=== PATIENT | male | born 1950 | race Caucasian/White ===

== ENCOUNTER 2018-01-13 22:12 | Emergency (ER) | payer OTHER, MEDICARE ==
[2018-01-13 22:53] LABS: CHLORIDE,CL 102 mmol/L (98-107); SODIUM,NA 135 mmol/L (136-145)
[2018-01-13] MEDS ORDERED: Sodium Chloride 0.9% 10 ML Syringe FLUSH PRN (23:01)
[2018-01-13] MEDS ORDERED: Sodium Chloride 0.9% 1,000 ML IV ONE (23:01)
--- NOTE | 2018-01-14 00:08 | EDM.PDOC ---
ED HPI GENERAL MEDICAL PROBLEM - General Chief Complaint: General Stated Complaint: Abd pain Time Seen by Provider: 01/13/18 23:00 Source of Information: Reports: Patient History Limitations: Reports: No Limitations - History of Present Illness INITIAL COMMENTS - FREE TEXT/NARRATIVE: Patient comes to ER with history of bright red blood per rectum starting later this afternoon around 4:30 to 5pm. Initially had bright red blood with stool. More recently had loose liquid BM that appeared to consist entirely of blood. Has noticed intermittent abdominal cramping today also. No nausea/emesis. Abdominal cramping gets worse with activity. No obvious change with eating/ drinking. Has had plenty of PO water today per patient. No fevers, but currently feels a bit "warm". History of GI bleed over 10 years ago per patient recall. Has been on Omeprazole for years. Patient says it was upper GI bleed. Also suffers from obesity, DM, and HTN. 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 Pending custodial this summer. Lives alone. ROS otherwise negative. Abdominal Pain Score (Numeric/FACES): 4 - Related Data Allergies Allergy/AdvReac Type Severity Reaction Status Date / Time No Known Allergies Allergy Verified 01/13/18 22:15 Home Meds: Home Meds Fish Oil/DHA/EPA [Fish Oil 1,200 MG] 1 cap PO DAILY 01/13/18 [History] Hydrochlorothiazide [Hydrochlorothiazide] 25 mg PO DAILY 01/13/18 [History] Ibuprofen [Advil] 400 mg PO ATDISCHARGE PRN 01/13/18 [History] Losartan [Cozaar] 50 mg PO DAILY 01/13/18 [History] Multivitamin [Multi-Vitamin Daily] 1 tab PO DAILY 01/13/18 [History] Omeprazole 20 mg PO BEDTIME 01/13/18 [History] sitaGLIPtin Phos/Metformin HCl [Janumet 50-1,000 MG] 1 each PO DAILY 01/13/18 [ History] sitaGLIPtin Phos/Metformin HCl [Janumet 50-1,000 MG] 1 tab PO BEDTIME 01/13/18 [ History] Past Medical History HEENT History: Reports: Allergic Rhinitis, Cataract Cardiovascular History: Reports: Heart Murmur, Hypertension Musculoskeletal History: Reports: Arthritis Endocrine/Metabolic History: Reports: Obesity/BMI 30+ - Past Surgical History HEENT Surgical History: Reports: LASIK, Oral Surgery GI Surgical History: Reports: Other (See Below) Other GI Surgeries/Procedures: GI Bleed about 10 years ago. Social & Family History - Tobacco Use Smoking Status *Q: Never Smoker Second Hand Smoke Exposure: No - Caffeine Use Caffeine Use: Reports: Coffee - Recreational Drug Use Recreational Drug Use: No ED ROS GENERAL - Review of Systems Review Of Systems: See Below Constitutional: Reports: No Symptoms. Denies: Fever, Chills, Malaise, Weakness , Fatigue, Night Sweats, Diaphoresis, Decreased Appetite, Weight Loss, Weight Gain HEENT: Reports: No Symptoms Respiratory: Reports: No Symptoms. Denies: Shortness of Breath Cardiovascular: Reports: No Symptoms. Denies: Chest Pain, Dyspnea on Exertion, Edema, Lightheadedness, Palpitations, Syncope Endocrine: Reports: Other (poorly controlled blood sugars by history. No acute changes. ) GI/Abdominal: Reports: Abdominal Pain, Bloody Stool, Constipation (yesterday), Diarrhea (today). Denies: Black Stool, Difficulty Swallowing, Distension, Flatus, Hematemesis, Mucous in Stool, Nausea, Vomiting : Reports: No Symptoms Musculoskeletal: Reports: No Symptoms Skin: Reports: No Symptoms Neurological: Reports: No Symptoms Psychiatric: Reports: No Symptoms Hematologic/Lymphatic: Reports: No Symptoms ED EXAM, GENERAL - Physical Exam Exam: See Below Exam Limited By: No Limitations General Appearance: Alert, WD/WN, No Apparent Distress, Obese Eye Exam: Bilateral Eye: EOMI, PERRL Ears: Normal External Exam Nose: No: Nasal Deformity, Nasal Swelling, Nasal Drainage Throat/Mouth: Normal Inspection, Normal Lips, Normal Voice, No Airway Compromise Head: Atraumatic, Normocephalic Neck: Normal Inspection, Supple, Non-Tender, Full Range of Motion Respiratory/Chest: No Respiratory Distress, Lungs Clear, Normal Breath Sounds, No Accessory Muscle Use, Chest Non-Tender Cardiovascular: No Murmur (Patient has history of heart murmur, not noted during this exam), Tachycardia Peripheral Pulses: 1+: Radial (L), Radial (R), Dorsalis Pedis (L), Dorsalis Pedis (R) GI/Abdominal: Soft, No Distention, No Abnormal Bruit, Tender (mild diffuse tenderness across abdomen), Abnormal Bowel Sounds (hyperactive). No: Guarding, Rigid, Rebound (Male) Exam: Deferred Rectal (Males) Exam: Normal Rectal Tone, Bloody Stool, Heme + Stool, Other ( Prostate feels enlarged). No: Hemorrhoids, Tenderness Back Exam: No: CVA Tenderness (L), CVA Tenderness (R) Extremities: Normal Range of Motion, Non-Tender, No Pedal Edema, Other (cap refill 3 seconds) Neurological: Alert, Oriented, Normal Cognition, Normal Gait, No Motor/Sensory Deficits Psychiatric: Normal Affect, Normal Mood Skin Exam: Warm, Dry, Intact, Normal Color, No Rash Course - Vital Signs Last Recorded V/S: Last Vital Signs Temp 37.1 C 01/14/18 00:35 Pulse 78 01/14/18 00:35 Resp 18 01/14/18 00:35 BP 132/78 01/14/18 00:35 Pulse Ox 98 01/14/18 00:35 - Orders/Labs/Meds Labs: Laboratory Tests 01/13/18 01/13/18 Range/Units 22:30 22:30 WBC 13.6 H (4.0-10.2) K/uL RBC 4.11 L (4.33-5.41) M/uL Hgb 12.2 L (13.1-16.8) g/dL Hct 36.8 L (39.0-49.0) % MCV 89.5 (84.0-98.0) fL MCH 29.7 (28.2-33.3) pg MCHC 33.2 (31.7-36.0) g/dL RDW 12.2 (11.2-14.1) % Plt Count 409 H (150-350) K/uL Neut % (Auto) 56.9 (45.0-80.0) % Lymph % (Auto) 26.1 (10.0-50.0) % [place] % (Auto) 12.4 (2.0-14.0) % Eos % (Auto) 4.0 (0.0-5.0) % Baso % (Auto) 0.6 (0.0-2.0) % Neut # (Auto) 7.74 H (1.40-7.00) K/uL Lymph # (Auto) 3.54 H (0.50-3.50) K/uL [place] # (Auto) 1.68 H (0.00-1.00) K/uL Eos # (Auto) 0.54 H (0.00-0.50) K/uL Baso # (Auto) 0.08 (0.00-0.20) K/uL Sodium 135 L (136-145) mmol/L Potassium 4.0 (3.5-5.1) mmol/L Chloride 102 (98-107) mmol/L Carbon Dioxide 25.2 (21.0-32.0) mmol/L BUN 21 H (7-18) mg/dL Creatinine 0.82 (0.51-1.17) mg/dL Est Cr Clr Drug Dosing 89.81 mL/min Estimated GFR (MDRD) > 60 mL/min Glucose 184 H (74-106) mg/dL Calcium 8.4 L (8.5-10.1) mg/dL Total Bilirubin 0.3 (0.2-1.0) mg/dL AST 25 (15-37) U/L ALT 49 (12-78) U/L Alkaline Phosphatase 45 L (46-116) IU/L Total Protein 7.4 (6.4-8.2) g/dL Albumin 3.4 (3.4-5.0) g/dL Meds: Medications Discontinued Medications Generic Name Dose Route Start Last Admin Trade Name Freq PRN Reason Stop Dose Admin Sodium Chloride 1,000 mls @ 999 mls/hr 01/13/18 23:01 01/13/18 23:21 Normal Saline IV 01/14/18 00:01 999 mls/hr .BOLUS ONE Administration Sodium Chloride 1,000 mls @ 125 mls/hr 01/14/18 00:45 01/14/18 01:12 Normal Saline IV 125 mls/hr ASDIRECTED BRAYAN Administration Iopamidol 100 ml 01/14/18 01:00 01/14/18 01:13 Isovue-300 (61%) IVPUSH 01/14/18 01:01 100 ml ONETIME ONE Administration Sodium Chloride 10 ml 01/13/18 23:01 01/13/18 23:26 Saline Flush FLUSH 10 ml ASDIRECTED PRN Administration Keep Vein Open - Radiology Interpretation Free Text/Narrative:: Plain film showed a few air/fluid levels. Increased stool on right. No air under diaphragm. - Re-Assessments/Exams Free Text/Narrative Re-Assessment/Exam: 01/14/18 00:16 Mild elevation of WBC, Hgb decreased to 12.2 Platelets 409 Chem showed elevated blood sugar. No UA available as of yet. Patient does admit to straining while trying to have bowel movement yesterday. No external hemorrhoids noted. Cannot rule out internal hemorrhoids and bleed caused by straining. However given patient's new crampy abdominal pain as well as hyperactive bowel sounds/frankly bloody stool a GI bleed from above is still possible. Patient had mild tachycardia as well as elevated platelets. IV fluid bolus given. Protonix IV ordered. Call placed to [facility] and patient discussed with . Arrangements were made to transfer patient there for further workup as they have both GI and Surgery available. requested that we perform an abdominal/pelvic CT prior to transfer. Patient does not need to wait until Radiology reads films prior to transfer to [facility]. Departure - Departure Time of Disposition: 01:00 Disposition: DC/Tfer to Acute Hospital 02 Condition: Fair Clinical Impression: Bright red blood per rectum Abdominal pain Qualifiers: Abdominal location: lower abdomen, unspecified Qualified Code(s): R10.30 - Lower abdominal pain, unspecified - Discharge Information Referrals: Jaimee Suarez PA [Primary Care Provider] - Forms: ED Department Discharge Additional Instructions: Patient to be transferred to [facility]. Recommend followup for enlarged prostate as that may require further workup. PSA also recommended if one has not been performed recently.
[2018-01-14] MEDS ORDERED: Sodium Chloride 0.9% 1,000 ML IV SCH (00:45)
[2018-01-14] MEDS ORDERED: Iopamidol 612 MG/ML 100 ML Bottle IVPUSH ONE (01:00)
== END 2018-01-14 01:20 ==
LOC: LL.ED 22:12
DX: K62.5 Hemorrhage of anus and rectum (principal); R10.30 Lower abdominal pain, unspecified; R00.0 Tachycardia, unspecified; D47.3 Essential (hemorrhagic) thrombocythemia; E11.9 Type 2 diabetes mellitus without complications; I10 Essential (primary) hypertension; E66.9 Obesity, unspecified; Z79.899 Other long term (current) drug therapy
CPT/HCPCS: 36415; 74019; 74177; 80053; 82272; 85025; 96360; 99285; J7030; J7050; Q9967

== ENCOUNTER 2025-10-29 21:16 | Emergency (ER) | payer MEDICARE, OTHER | END 2025-10-29 22:10 | disposition home or self-care (01) | LOC: LL.ED 21:16 | DX: L76.34 Postprocedural seroma of skin and subcutaneous tissue following other procedure (principal); I10 Essential (primary) hypertension; E66.9 Obesity, unspecified; Z68.32 Body mass index [BMI] 32.0-32.9, adult; Z79.899 Other long term (current) drug therapy | CPT/HCPCS: 99283 ==

== ENCOUNTER 2025-10-30 07:11 | Emergency (ER) | payer MEDICARE | END 2025-10-30 09:15 | disposition home or self-care (01) | LOC: LL.ED 07:11 | DX: T81.89XA Other complications of procedures, not elsewhere classified, initial encounter (principal); L76.32 Postprocedural hematoma of skin and subcutaneous tissue following other procedure; I10 Essential (primary) hypertension; E66.9 Obesity, unspecified; Z79.899 Other long term (current) drug therapy | CPT/HCPCS: 99283; A6213 ==